=== PATIENT | female | born 1980 | race Caucasian/White ===

== ENCOUNTER 2016-11-22 16:12 | Emergency (ER) | payer OTHER ==
[~2016-11-22] VITALS: Ht 165.1 cm; Wt 96.0 kg
[~2016-11-22 16:12] MED LIST: CIPROFLOXACIN500 M1; HYCODAN SYRUP480 ML PO; HYDROCHLOROTHIA25 MG PO; LISINOPRIL20 MG PO; MEDROL DOSEPAK4 MG PO; METHADONE 22 MG/1 ML PO; METHADONE HCL40 MG PO; PROTONIX40 MG PO; SUBOXONE 8 M1 TABLET PO; TRI-LO-SPRINTE1 EAC1 PO; XARELTO15 MG PO; ZOFRAN ODT4 MG PO; ZOFRAN4 MG PO
[2016-11-22 16:54] LABS: HEMATOCRIT 34.2 % (36.0-46.0); MCH 32.7 PG (29.0-34.0); MCHC 34.5 G/DL (30.0-36.0); MCV 94.7 FL (83-99); MEAN PLAT.VOLUME 10.1 uM^3 (9.5-12.4); PLATELET COUNT 165 K/uL (156-360); RBC DIS.WIDTH-CV 13.5 % (11.8-14.6); RBC DIS.WIDTH-SD 44.4 % (39-53); RED BLOOD COUNT 3.61 M/uL (3.80-5.20); WHITE BLOOD COUNT 6.7 K/uL (4.1-10.2)
[2016-11-22 17:03] LABS: CHLORIDE 100 mEq/L (99-109); POTASSIUM 3.7 mEq/L (3.7-5.4); SODIUM 139 mEq/L (136-147)
[2016-11-22 17:04] LABS: GLUCOSE 97 mg/dL (70-99)
[2016-11-22 17:06] LABS: ANION GAP 13 MEQ/L (2-14)
[2016-11-22 17:08] LABS: GFR ESTIMATE (CALCULATED) > 59 mL/min/
[2016-11-22 17:09] LABS: UREA NITROGEN (BUN) 6 mg/dL (9-23)
[2016-11-22 17:14] LABS: TROP-I INTERPRETATION NEGATIVE; TROPONIN-I < 0.01 ng/mL (0.0-0.30)
[2016-11-22 20:01] LABS: TROP-I INTERPRETATION NEGATIVE; TROPONIN-I < 0.01 ng/mL (0.0-0.30)
[2016-11-22 23:04] VITALS: BP 131/96
== END 2016-11-22 23:05 | disposition home or self-care (01) ==
LOC: EME 16:12
PROVIDERS: Physician Assistant Medical
DX: R06.00 Dyspnea, unspecified (principal); R07.89 Other chest pain; I10 Essential (primary) hypertension; F17.200 Nicotine dependence, unspecified, uncomplicated; Z86.711 Personal history of pulmonary embolism; Z88.0 Allergy status to penicillin
CPT/HCPCS: 71020; 71275; 80048; 84484; 85027; 93005; 99281; 99284; J7030

== ENCOUNTER 2016-11-27 13:02 | Emergency (ER) | payer OTHER ==
[~2016-11-27] VITALS: Ht 165.1 cm; Wt 96.4 kg
[2016-11-27 14:12] LABS: EOSINOPHIL (%) 0.8 % (0-5); EOSINOPHIL COUNT 0.1 K/uL (0-0.3); HEMATOCRIT 31.9 % (36.0-46.0); IMMATURE GRANULOCYTE (%) 0.2 % (0.0-0.7); IMMATURE GRANULOCYTE COUNT 0.1 K/uL; LYMPHOCYTE COUNT 0.6 K/uL (1.0-2.8); MCHC 33.9 G/DL (30.0-36.0); MCV 94.7 FL (83-99); MEAN PLAT.VOLUME 10.2 uM^3 (9.5-12.4); MONOCYTE (%) 4.7 % (3-12); MONOCYTE COUNT 0.3 K/uL (0-0.8); NEUTROPHIL (%) 84.8 % (45-76); NEUTROPHIL COUNT 5.4 K/uL (1.8-6.4); PLATELET COUNT 190 K/uL (156-360); RBC DIS.WIDTH-CV 14.3 % (11.8-14.6); RBC DIS.WIDTH-SD 46.6 % (39-53); RED BLOOD COUNT 3.37 M/uL (3.80-5.20); WHITE BLOOD COUNT 6.3 K/uL (4.1-10.2)
[2016-11-27 14:21] LABS: BILIRUBIN NEGATIVE; BLOOD NEGATIVE; COLOR YELLOW ((YELLOW)); GLUCOSE (STRIP) NEGATIVE; KETONES TRACE; LEUKOCYTES NEGATIVE; NITRITE NEGATIVE; PROTEIN (STRIP) NEGATIVE; SPECIFIC GRAVITY 1.015 (1.000-1.030); UROBILINOGEN 0.2 MG/DL (0.2-1.0)
[2016-11-27 14:23] LABS: CHLORIDE 105 mEq/L (99-109); POTASSIUM 3.1 mEq/L (3.7-5.4); SODIUM 139 mEq/L (136-147)
[2016-11-27 14:25] LABS: GLUCOSE 111 mg/dL (70-99)
[2016-11-27 14:26] LABS: ANION GAP 15 MEQ/L (2-14)
[2016-11-27 14:27] LABS: ADD MIUA? NO; UCUL ADDED? NO
[2016-11-27 14:27] LABS: TOTAL BILIRUBIN 0.5 mg/dL (0.0-1.0)
[2016-11-27 14:28] LABS: ALKALINE PHOSPHATASE 69 IU/L (3-129)
[2016-11-27 14:29] LABS: GFR ESTIMATE (CALCULATED) > 59 mL/min/
[2016-11-27 14:30] LABS: UREA NITROGEN (BUN) 6 mg/dL (9-23)
[2016-11-27 14:32] LABS: LIPASE 24 U/L (1.0-51.0)
[2016-11-27 14:39] LABS: QUANTITATIVE HCG < 4.0 MIU/ML
[2016-11-27] MEDS ORDERED: ZOFRAN ODT8 MG PO (15:36)
[2016-11-27] MEDS ORDERED: BENTYL20 MG PO (15:36)
[2016-11-27] MEDS ORDERED: CARAFATE1 GM PO (15:36)
[2016-11-27] MEDS ORDERED: ULTRAM50 MG PO (15:36)
[2016-11-27 16:36] VITALS: BP 118/70
== END 2016-11-27 16:30 | disposition home or self-care (01) ==
LOC: EME 13:02
PROVIDERS: Emergency Medicine
DX: R10.84 Generalized abdominal pain (principal); K21.9 Gastro-esophageal reflux disease without esophagitis; I10 Essential (primary) hypertension; F11.20 Opioid dependence, uncomplicated; F17.200 Nicotine dependence, unspecified, uncomplicated
CPT/HCPCS: 74177; 80053; 81003; 83690; 84702; 85025; 99281; 99285; J1170; J2405; J7030

== ENCOUNTER 2017-01-29 09:17 | Emergency (ER) | payer OTHER ==
[~2017-01-29] VITALS: Ht 165.1 cm; Wt 97.8 kg
[~2017-01-29 09:17] MED LIST changes: +BENTYL20 MG PO; +CARAFATE1 GM PO; +ULTRAM50 MG PO; +ZOFRAN ODT8 MG PO
[2017-01-29 10:43] LABS: MCHC 30.6 G/DL (30.0-36.0); MCV 84.8 FL (83-99); MEAN PLAT.VOLUME 11.3 uM^3 (9.5-12.4); PLATELET COUNT 177 K/uL (156-360); RBC DIS.WIDTH-CV 15.1 % (11.8-14.6); RBC DIS.WIDTH-SD 45.7 % (39-53); RED BLOOD COUNT 3.89 M/uL (3.80-5.20); WHITE BLOOD COUNT 5.4 K/uL (4.1-10.2)
[2017-01-29 10:53] LABS: CHLORIDE 100 mEq/L (99-109); POTASSIUM 3.2 mEq/L (3.7-5.4); SODIUM 137 mEq/L (136-147)
[2017-01-29 10:55] LABS: GLUCOSE 102 mg/dL (70-99)
[2017-01-29 10:56] LABS: ANION GAP 12 MEQ/L (2-14)
[2017-01-29 10:59] LABS: GFR ESTIMATE (CALCULATED) > 59 mL/min/
[2017-01-29 11:00] LABS: UREA NITROGEN (BUN) 5 mg/dL (9-23)
[2017-01-29 11:03] LABS: TROP-I INTERPRETATION NEGATIVE; TROPONIN-I < 0.01 ng/mL (0.0-0.30)
[2017-01-29 11:23] LABS: D-DIMER ELISA 0.23 mg/L FEU (< 0.57)
[2017-01-29 12:26] VITALS: BP 158/98
== END 2017-01-29 12:27 | disposition left against medical advice (07) ==
LOC: EME 09:17
PROVIDERS: Nurse Practitioner Family
DX: R07.9 Chest pain, unspecified (principal); I10 Essential (primary) hypertension; K21.9 Gastro-esophageal reflux disease without esophagitis; Z86.711 Personal history of pulmonary embolism; F17.200 Nicotine dependence, unspecified, uncomplicated
CPT/HCPCS: 71020; 80048; 84484; 85027; 85379; 93005; 99281; 99283

== ENCOUNTER 2017-08-11 17:50 | Emergency (ER) | payer OTHER ==
[~2017-08-11] VITALS: Ht 165.1 cm; Wt 101.7 kg
[2017-08-11 18:46] LABS: HEMATOCRIT 33.4 % (36.0-46.0); MCH 27.7 PG (29.0-34.0); MCHC 31.4 G/DL (30.0-36.0); MCV 88.1 FL (83-99); MEAN PLAT.VOLUME 10.6 uM^3 (9.5-12.4); PLATELET COUNT 186 K/uL (156-360); RBC DIS.WIDTH-SD 52.1 % (39-53); RED BLOOD COUNT 3.79 M/uL (3.80-5.20)
[2017-08-11 18:55] LABS: D-DIMER ELISA < 150.00 ng/mLDDU (<230)
[2017-08-11 19:04] LABS: CHLORIDE 97 mEq/L (99-109); POTASSIUM 2.9 mEq/L (3.7-5.4); SODIUM 138 mEq/L (136-147)
[2017-08-11 19:06] LABS: GLUCOSE 126 mg/dL (70-99)
[2017-08-11 19:07] LABS: ANION GAP 13 MEQ/L (2-14)
[2017-08-11 19:09] LABS: TROP-I INTERPRETATION NEGATIVE; TROPONIN-I < 0.01 ng/mL (0.0-0.30)
[2017-08-11 19:10] LABS: GFR ESTIMATE (CALCULATED) > 59 mL/min/
[2017-08-11 19:11] LABS: UREA NITROGEN (BUN) 5 mg/dL (9-23)
[2017-08-11 20:20] LABS: TROP-I INTERPRETATION NEGATIVE; TROPONIN-I < 0.01 ng/mL (0.0-0.30)
[2017-08-11 21:08] VITALS: BP 147/93
== END 2017-08-11 21:07 | disposition home or self-care (01) ==
LOC: EME 17:50
PROVIDERS: Emergency Medicine
DX: R07.89 Other chest pain (principal); K04.7 Periapical abscess without sinus; I10 Essential (primary) hypertension; K21.9 Gastro-esophageal reflux disease without esophagitis; F11.20 Opioid dependence, uncomplicated; F32.9 Major depressive disorder, single episode, unspecified; Z86.711 Personal history of pulmonary embolism; F17.200 Nicotine dependence, unspecified, uncomplicated; Z88.0 Allergy status to penicillin
CPT/HCPCS: 71020; 80048; 84484; 85027; 85379; 93005; 94640; 99281; 99284

== ENCOUNTER 2017-10-11 01:27 | Emergency (ER) | payer OTHER ==
[~2017-10-11] VITALS: Ht 165.1 cm; Wt 102.9 kg
[2017-10-11 01:40] VITALS: BP 148/100
[2017-10-11 02:00] LABS: HEMATOCRIT 35.1 % (36.0-46.0); MCH 29.3 PG (29.0-34.0); MCHC 32.5 G/DL (30.0-36.0); MCV 90.2 FL (83-99); MEAN PLAT.VOLUME 10.6 uM^3 (9.5-12.4); PLATELET COUNT 141 K/uL (156-360); RBC DIS.WIDTH-CV 20.8 % (11.8-14.6); RBC DIS.WIDTH-SD 64.6 % (39-53); RED BLOOD COUNT 3.89 M/uL (3.80-5.20); WHITE BLOOD COUNT 4.9 K/uL (4.1-10.2)
[2017-10-11 02:08] LABS: CHLORIDE 99 mEq/L (99-109); SODIUM 140 mEq/L (136-147)
[2017-10-11 02:10] LABS: GLUCOSE 107 mg/dL (70-99)
[2017-10-11 02:11] LABS: ANION GAP 14 MEQ/L (2-14)
[2017-10-11 02:14] LABS: GFR ESTIMATE (CALCULATED) > 59 mL/min/; UREA NITROGEN (BUN) 2 mg/dL (9-23)
[2017-10-11 02:20] LABS: TROP-I INTERPRETATION NEGATIVE; TROPONIN-I < 0.01 ng/mL (0.0-0.30)
== END 2017-10-11 02:35 | disposition left against medical advice (07) ==
LOC: EME 01:27
DX: R00.2 Palpitations (principal); Z53.21 Procedure and treatment not carried out due to patient leaving prior to being seen by health care provider
CPT/HCPCS: 80048; 84484; 85027; 93005

== ENCOUNTER 2018-01-29 20:54 | Emergency (ER) | payer OTHER ==
[~2018-01-29] VITALS: Ht 172.7 cm; Wt 102.6 kg
[2018-01-29 21:22] LABS: HEMATOCRIT 41.9 % (36.0-46.0); HEMOGLOBIN 14.2 G/DL (11.9-15.5); MCH 32.9 PG (29.0-34.0); MCHC 33.9 G/DL (30.0-36.0); MCV 97.2 FL (83-99); PLATELET COUNT 187 K/uL (156-360); RBC DIS.WIDTH-CV 14.9 % (11.8-14.6); RBC DIS.WIDTH-SD 53.9 % (39-53); RED BLOOD COUNT 4.31 M/uL (3.80-5.20); WHITE BLOOD COUNT 8.1 K/uL (4.1-10.2)
[2018-01-29 21:31] LABS: CHLORIDE 97 mEq/L (99-109); POTASSIUM 3.5 mEq/L (3.7-5.4); SODIUM 134 mEq/L (136-147)
[2018-01-29 21:33] LABS: GLUCOSE 117 mg/dL (70-99)
[2018-01-29 21:37] LABS: CREATININE 0.7 mg/dL (0.6-1.3); GFR ESTIMATE (CALCULATED) > 59 mL/min/; UREA NITROGEN (BUN) 5 mg/dL (9-23)
[2018-01-29 21:43] LABS: TROP-I INTERPRETATION NEGATIVE; TROPONIN-I < 0.01 ng/mL (0.0-0.30)
[2018-01-30 00:31] LABS: TROP-I INTERPRETATION NEGATIVE; TROPONIN-I < 0.01 ng/mL (0.0-0.30)
[2018-01-30] MEDS ORDERED: LEVAQUIN500 MG PO (02:16)
[2018-01-30 02:43] VITALS: BP 123/91
== END 2018-01-30 02:44 | disposition home or self-care (01) ==
LOC: EME 20:54
PROVIDERS: Emergency Medicine
DX: J21.9 Acute bronchiolitis, unspecified (principal); F32.9 Major depressive disorder, single episode, unspecified; I10 Essential (primary) hypertension; K21.9 Gastro-esophageal reflux disease without esophagitis; F17.200 Nicotine dependence, unspecified, uncomplicated; Z88.0 Allergy status to penicillin; F11.20 Opioid dependence, uncomplicated
CPT/HCPCS: 71046; 71275; 80048; 84484; 85027; 93005; 99281; 99285; J7030

== ENCOUNTER → 2018-03-12 | Outpatient (CLI) | payer OTHER ==
[~2018-03-12] VITALS: Ht 165.1 cm; Wt 103.4 kg
[~2018-03-12] MED LIST changes: +LEVAQUIN500 MG PO; -METHADONE 22 MG/1 ML PO; +METHADONE1 MG/1 ML PO; +ZANTAC150 MG PO; +ZESTORETIC 20-1 EAC1 PO
[2018-03-12 12:22] LABS: HEMATOCRIT 38.9 % (36.0-46.0); HEMOGLOBIN 12.8 G/DL (11.9-15.5)
== END | disposition home or self-care (01) ==
LOC: AMB 11:45
PROVIDERS: Anesthesiology
PROC: 0DB68ZX Excision of Stomach, Via Natural or Artificial Opening Endoscopic, Diagnostic (ICD-10-PCS; principal; 2018-03-12)
DX: K22.10 Ulcer of esophagus without bleeding (principal); K29.70 Gastritis, unspecified, without bleeding; K44.9 Diaphragmatic hernia without obstruction or gangrene
CPT/HCPCS: 85014; 85018; 88305; 88342 TC; J2405

== ENCOUNTER 2018-06-13 06:19 | Day surgery (SDC) | payer OTHER ==
[~2018-06-13] VITALS: Ht 165.1 cm; Wt 104.3 kg
[~2018-06-13 06:19] MED LIST changes: +IRON325 M1 PO; +PRILOSEC20 MG PO
[2018-06-13 06:59] LABS: BASOPHIL (%) 0.4 % (0-1); EOSINOPHIL (%) 1.6 % (0-5); EOSINOPHIL COUNT 0.1 K/uL (0-0.3); HEMATOCRIT 42.2 % (36.0-46.0); HEMOGLOBIN 14.6 G/DL (11.9-15.5); IMMATURE GRANULOCYTE (%) 0.1 % (0.0-0.7); LYMPHOCYTE (%) 23.1 % (15-42); LYMPHOCYTE COUNT 1.6 K/uL (1.0-2.8); MCHC 34.6 G/DL (30.0-36.0); MCV 109.9 FL (83-99); MONOCYTE (%) 6.6 % (3-12); MONOCYTE COUNT 0.5 K/uL (0-0.8); NEUTROPHIL (%) 68.2 % (45-76); NEUTROPHIL COUNT 4.8 K/uL (1.8-6.4); PLATELET COUNT 159 K/uL (156-360); RBC DIS.WIDTH-CV 14.5 % (11.8-14.6); RBC DIS.WIDTH-SD 59.3 % (39-53); RED BLOOD COUNT 3.84 M/uL (3.80-5.20); WHITE BLOOD COUNT 7.1 K/uL (4.1-10.2)
[2018-06-13 07:18] VITALS: BP 137/95
[2018-06-13 07:20] LABS: CHLORIDE 97 MEQ/L (99-109); CREATININE 0.6 MG/DL (0.6-1.3); GFR ESTIMATE (CALCULATED) > 59 mL/min/; GLUCOSE 108 mg/dL (70-99); POTASSIUM 4.2 MEQ/L (3.7-5.4); SODIUM 137 MEQ/L (136-147); UREA NITROGEN (BUN) 3 mg/dL (9-23)
[2018-06-13 08:14] LABS: QUANTITATIVE HCG < 4.0 MIU/ML
[2018-06-13 12:32] VITALS: BP 128/88
[2018-06-13 15:20] VITALS: BP 132/60
[2018-06-13 19:38] VITALS: BP 119/73
[2018-06-14 00:04] VITALS: BP 116/66
[2018-06-14 03:41] VITALS: BP 128/75
[2018-06-14 06:12] LABS: HEMATOCRIT 35.3 % (36.0-46.0); MCH 38.9 PG (29.0-34.0); MCHC 34.6 G/DL (30.0-36.0); MCV 112.4 FL (83-99); PLATELET COUNT 124 K/uL (156-360); RBC DIS.WIDTH-CV 14.5 % (11.8-14.6); RBC DIS.WIDTH-SD 60.7 % (39-53); RED BLOOD COUNT 3.14 M/uL (3.80-5.20); WHITE BLOOD COUNT 6.7 K/uL (4.1-10.2)
[2018-06-14 06:16] LABS: HEMOGLOBIN 12.2 G/DL (11.9-15.5)
[2018-06-14 08:15] VITALS: BP 127/81
[2018-06-14] MEDS ORDERED: ENDOCET 5-3251 EACH PO (09:23)
[2018-06-14] MEDS ORDERED: DOCUSATE SODIU100 MG PO (09:23)
[2018-06-14] MEDS ORDERED: IBUPROFEN800 MG PO (09:23)
[2018-06-14 11:53] VITALS: BP 126/74
== END 2018-06-14 15:28 | disposition home or self-care (01) ==
LOC: 2SOUTH → SDC 06:19 → 2SOUTH 10:03 → 2EASTP 10:45 → ENRESERV 10:56 → 2EASTP 12:32 → SDC 13:48 → EDSTATUS 13:48 → 2SOUTH 13:49 → SDC 14:39 → ENPENDDIS 06-14 14:46 → 2EASTP 06-14 15:28
PROVIDERS: Obstetrics & Gynecology
PROC: 0UT97ZZ Resection of Uterus, Via Natural or Artificial Opening (ICD-10-PCS; principal; 2018-06-13)
DX: N72 Inflammatory disease of cervix uteri (principal); N80.0 Endometriosis of uterus; N92.1 Excessive and frequent menstruation with irregular cycle; I10 Essential (primary) hypertension; I45.10 Unspecified right bundle-branch block; Z88.0 Allergy status to penicillin; F17.210 Nicotine dependence, cigarettes, uncomplicated; Z88.8 Allergy status to other drugs, medicaments and biological substances
CPT/HCPCS: 80048; 84702; 85025; 85027; 86850; 86900; 86901; 88307; G0378; J0131; J0690; J1100; J1170; J1885; J2250; J2405; J2710; J3010; J7120; J7643